=== PATIENT | female | born 1965 | race Caucasian/White ===

== ENCOUNTER 2023-06-16 17:32 | Emergency (ER) | payer OTHER ==
[~2023-06-16] VITALS: Ht 139.7 cm; Wt 43.1 kg
[2023-06-16] MEDS ORDERED: oxyCODONE/APAP (5/325 MG) 1 UDTAB TABLET ONE (17:58)
[2023-06-16] MEDS: oxyCODONE/APAP (5/325 MG) 1 UDTAB TABLET PO ONE (18:00)
[2023-06-16 18:17] LABS: BASOPHILS % (AUTO) 0.1 % (0.0-2.0); EOSINOPHILS % (AUTO) 0.1 % (0.0-6.0); HEMATOCRIT 35 % (33-45); HEMOGLOBIN 10.7 g/dL (11.5-14.8); LYMPHOCYTES # (AUTO) 2.6 K/uL (0.8-4.8); LYMPHOCYTES % (AUTO) 26.7 % (20.0-44.0); MEAN CORPUSCULAR HEMOGLOBIN 26 PG (26.0-33.0); MEAN CORPUSCULAR HGB CONC 31 g/dl (31.0-36.0); MEAN CORPUSCULAR VOLUME 84 fL (82-100); MONOCYTES # (AUTO) 0.6 K/uL (0.1-1.30); MONOCYTES % (AUTO) 6.5 % (2.0-12.0); NEUTROPHILS # (AUTO) 6.5 K/uL (1.8-8.9); NEUTROPHILS % (AUTO) 66.6 % (43.0-81.0); PLATELET COUNT (AUTO) 470 K/uL (150-450); RED CELL DISTRIBUTION WIDTH 17.5 % (11.5-15.0); WHITE BLOOD COUNT (AUTO) 9.8 K/uL (4.3-11.0)
[2023-06-16 18:29] LABS: CALCIUM, SERUM 10.1 mg/dL (8.5-10.1); CARBON DIOXIDE 12 mmol/L (21-32); CHLORIDE 100 mmol/L (98-107); CREATININE 1.6 mg/dL (0.6-1.3); GLUCOSE 111 mg/dL (74-106); SODIUM SERUM 129 mmol/L (136-145); UREA NITROGEN, BLOOD 20 mg/dL (7-18)
[2023-06-16 18:44] LABS: ALANINE AMINOTRANSFERASE 22 U/L (12-78); ASPARTATE AMINOTRANSFERASE 11 U/L (15-37); BILIRUBIN,DIRECT 0.1 mg/dL (0.0-0.2); BILIRUBIN,TOTAL 0.3 mg/dL (0.2-1.0); NT-PRO BNP 650 pg/mL (0-125); TOTAL PROTEIN, SERUM 6.6 g/dL (6.4-8.2)
[2023-06-16 18:45] LABS: ALKALINE PHOSPHATASE 139 U/L (46-116); POTASSIUM 2.4 mmol/L (3.5-5.1)
[2023-06-16] MEDS ORDERED: IV NS 0.9% 250 ML IV ONE (18:47)
[2023-06-16] MEDS ORDERED: IOHEXOL-350 100 ML VIAL IV ONE (18:47)
[2023-06-16] MEDS: POTASSIUM CHLORIDE 20 MEQ POWDER PACKET PO ONE (19:00)
[2023-06-16] MEDS ORDERED: POTASSIUM CHLORIDE 20 MEQ POWDER PACKET ONE (19:03)
[2023-06-16] MEDS ORDERED: IBUP-1955 PO (20:15)
[2023-06-16 20:36] VITALS: BP 132/78; TEMP 98; O2SAT 97
== END 2023-06-16 20:37 | disposition home or self-care (01) ==
LOC: ER 17:32
DX: M54.6 Pain in thoracic spine (principal); Z88.1 Allergy status to other antibiotic agents
CPT/HCPCS: 99285; 71275; 71045; 93005; 85025; 80048; 80076; 36415; 84484; 83880; J7050; Q9967